=== PATIENT | female | born 1950 | race Caucasian/White ===

== ENCOUNTER → 2018-03-24 | Outpatient (CLI) | payer OTHER | LOC: M SLEEP 19:19 | DX: G47.33 Obstructive sleep apnea (adult) (pediatric) (principal) | CPT/HCPCS: 95810 ==

== ENCOUNTER → 2023-08-14 | Outpatient (CLI) | payer OTHER | LOC: M WUC 13:58 | PROVIDERS: ATTEND Nurse Practitioner Family | DX: L40.0 Psoriasis vulgaris (principal) ==

== ENCOUNTER → 2025-04-28 | Outpatient (CLI) | payer OTHER, MEDICARE | LOC: M WHC 11:00 | PROVIDERS: ATTEND Internal Medicine | DX: Z12.31 Encounter for screening mammogram for malignant neoplasm of breast (principal) ==